=== PATIENT | male | born 1935 | race Caucasian/White ===

== ENCOUNTER 2018-12-30 10:02 | Emergency (ER) | payer OTHER ==
[2018-12-30] MEDS ORDERED: LET GEL TOPICAL 1 EA SYR TP ONE (10:16)
--- NOTE | 2018-12-30 10:25 | EDPHY ---
H & P Time Seen by Provider: 12/30/18 10:03 HPI/ROS: HPI Fall, right-sided pain. 83-year-old male by ambulance from the [facility]. The patient was in the bathroom approximately an hour and a half before arrival. He apparently was standing up cleaning himself with his pants down around his ankles, it is thought that he tried to move and then tripped falling forward landing on his right shoulder and right side. He is currently on hospice care. His son is in the room with him and describes this likely mechanism. The patient is not sure how he fell. He has a history of multiple falls and skin tears and contusions from bumping into things. He complains of right shoulder pain and right elbow pain. ROS: Constitutional: No fever, no chills. No weakness. Eyes: No discharge. No changes in vision. ENT: No sore throat. No nasal congestion or rhinorrhea. Respiratory: No cough. No shortness of breath. Cardiac: No chest pain, no palpitations. Gastrointestinal: No abdominal pain, no vomiting, no diarrhea. Genitourinary: No hematuria. No dysuria or increased frequency with urination. Musculoskeletal: No back pain. No neck pain. No myalgias or arthralgias. Skin: No rashes. Neurological: No headache. No focal weakness or altered sensation. Past medical history: Systolic and diastolic heart failure, dementia, cirrhosis of the liver, pulmonary hypertension, chronic respiratory failure, he is on 24-7 oxygen at 2-3 L, malignant neoplasm of bladder, GERD, atrial flutter/ atrial fibrillation. Is not on anticoagulation or antiplatelet agents. Social history: Hospice care. From [place]. Son and family are in room with him. Physical Exam: General Appearance: Alert, he does not appear to be in distress. This patient is responding to questions appropriately and in full sentences. Baseline mentation according to his son who is at the bedside. This patient appears generally well-hydrated and well-nourished. Head: Normocephalic atraumatic. Face: Facial bones are stable on palpation. Eyes: Pupils equal and round and reactive to light, no pallor or injection. No lid erythema or edema. ENT, Mouth: Mucous membranes moist. Dentition is intact. No malocclusion of the jaw. He has a right lateral tongue contusion about the size of a dime without a suturable laceration. Pharynx is clear. The bilateral nasal canals are clear. No septal hematoma. Respiratory: There are no retractions, lungs are clear to auscultation with good air movement bilaterally. Chest wall is stable to AP and lateral palpation. Cardiovascular: Regular rate and rhythm. No murmur. Gastrointestinal: Abdomen is soft, mildly distended with an umbilical hernia which is easily reduced, and nontender, no masses except noted, bowel sounds normal. Neurological: Motor sensory function is intact. Cranial nerves are normal. Cerebellar function intact. Skin: Warm and dry, no rashes. Skin tear abrasion right superior lateral shoulder, old skin tear over the right elbow from a previous fall, diffuse contusions involving the dorsal aspect of the proximal right hand and distal right wrist with some diffuse tenderness on palpation and axial loading of the digits of the right hand. Musculoskeletal: Neck is supple and nontender. The trachea is midline. No midline cervical, thoracic, lumbar or sacral tenderness on palpation. No flank tenderness on palpation. Extremities are symmetrical, full range of motion. All joints in the bilateral upper and bilateral lower extremities range without pain or impingement except noted. No tenderness on palpation of the long bones in the bilateral upper and bilateral lower extremities except noted. Psychiatric: No agitation. No depression. Database: EKG: EKG time is 1051 a.m.; EKG shows likely atrial fibrillation with intermittent PVCs in an underlying right bundle branch block, ventricular rate of 69. The QT intervals are within normal limits. There are no ST-T wave changes indicative of ischemic or injury pattern. No evidence of right heart strain. Interpreted by me. Imaging: CT head without contrast: Atrophy. Age-related changes. No acute pathology. Results discussed with staff radiologist Dr. Fredrick Capone Chest x-ray AP portable: Right-sided pleural effusion. This is not acute. No other acute cardiopulmonary disease process noted. Interpreted by me. Right shoulder x-ray series: Negative for acute fracture, subluxation, dislocation. Interpreted by me. Right elbow x-ray series: Negative for acute fracture, subluxation, dislocation. Interpreted by me. Right hand and wrist x-ray series: Negative for acute fracture, there is a increased widening involving the scaphoid and lunate which may represent a sprain or tear of the scapholunate ligament. Interpreted by me. Procedures: Emergency department course: Triage vital signs reviewed. Mildly hypotensive with blood pressure of 89/67. Patient is afebrile. 94% pulse oximetry on 2 L of nasal cannula oxygen which is his baseline. IV was placed. He will be given low volume IV fluids as needed based on his blood pressure, he declines pain medication at this time. He will be sent for imaging as above. I discussed patient's workup and presentation with his son Babatunde who is the power of trademark attorney and present at bedside. Patient also has a DNI and DNR with him. 12:50 p.m., the patient was re-evaluated, no change in mental status, alert, not in any distress. I discussed the patient's emergency department workup and results of chest x-ray and other imaging in detail with his , son and daughter who are all at bedside. His daughter who is a nurse and son explained to me that the right pleural effusion is old. They asked if it required drainage emergently and I explained that at this time it did not. Nayeli of case management was in the room as well. Currently we are trying to work with his hospice care as well as [facility] to ensure that he has a high enough level of care that he will be safe returning to [place] with his which is what he and his family desire. We will get him up and road test him with his walker. 2:00 p.m., the patient was up and ambulatory at his baseline with his walker. Blood pressure 100/67. Vital signs have been stable. At this time both his son , and daughter who is a nurse here at the hospital feel comfortable with him going back to [place]. Our case management has discussed ongoing care with the [place] staff as well as his hospice. Both the patient, his as well as the son and daughter feel comfortable with this plan. The son and daughter will provide transport practice to [place]. Follow-up and return to emergency department precautions were discussed with everyone. All of their questions were answered. The patient was discharged in good condition with family. Differential Diagnosis: The differential diagnosis on this patient includes but is not limited to mechanical fall, right shoulder contusion, right shoulder skin tear, right elbow and wrist contusions. Traumatic brain injury, traumatic spinal injury, other significant traumatic injury the noted unlikely. This represents a partial list of diagnoses considered. These considerations are based on history , physical exam, past history, reassessment and diagnostic testing. Constitutional: Initial Vital Signs Temperature (C) 36.3 C 12/30/18 10:12 Heart Rate 71 12/30/18 10:12 Respiratory Rate 17 12/30/18 10:12 Blood Pressure 89/67 L 12/30/18 10:12 O2 Sat (%) 94 12/30/18 10:12 O2 Delivery Mode Nasal Cannula O2 (L/minute) 4 Allergies/Adverse Reactions: pseudoephedrine Allergy (Verified 12/30/18 10:21) Home Medications: Medication Instructions Recorded ACETAMINOPHEN 12/30/18 Alendronate Sodium 12/30/18 Aspirin 12/30/18 Ativan 12/30/18 CALCIUM 600 + VIT D TABLET 12/30/18 Coenzyme Q10 12/30/18 Famotidine 12/30/18 Lactulose 12/30/18 Lasix 12/30/18 Levothyroxine Sodium 12/30/18 Potassium Chloride 12/30/18 Simvastatin 12/30/18 Spironolactone 12/30/18 Vitamin D3 12/30/18 Medical Decision Making - Data Points Laboratory Results: Laboratory Results 12/30/18 10:27 12/30/18 10:27 Medications Given: Discontinued Medications Tetracaine/Epinephrine/Lidocaine (Let Gel Topical) 1 ea TP EDNOW ONE Stop: 12/30/18 10:17 Last Admin: 12/30/18 10:54 Dose: 1 ea Departure - Departure Disposition: Home, Routine, Self-Care Clinical Impression: Fall from ground level, Abrasion of right shoulder, Sprain of right hand, Chronic right pleural effusion Condition: Good Instructions: Fall Prevention for Older Adults (ED), Hand Sprain (ED) Additional Instructions: Read and follow provided instructions. Follow-up with your primary care physician in 2-3 days for re-evaluation. Return to the emergency department for worsening pain, cough, difficulty breathing or other serious concerns. Referrals: [facility] [Other] - As per Instructions
[2018-12-30 10:38] LABS: PLATELET COUNT 356 10^3/uL (150-400)
[2018-12-30 10:50] LABS: INR 1.18 (0.83-1.16); PROTIME(PATIENT) 14.5 SEC (12.0-15.0)
[2018-12-30 10:56] LABS: CREATINE KINASE 78 IU/L (0-224)
[2018-12-30 13:36] VITALS: BP 100/67
--- NOTE | 2018-12-30 15:26 | CPEKG ---
Test Reason : OPEN Blood Pressure : / mmHG Vent. Rate : 069 BPM Atrial Rate : 000 BPM P-R Int : 192 ms QRS Dur : 172 ms QT Int : 461 ms P-R-T Axes : 000 051 063 degrees QTc Int : 494 ms Atrial fibrillation Ventricular premature complex Right bundle branch block Confirmed by Nga Persaud ([id number]) on 12/30/2018 3:25:36 PM Referred By: Nga Persaud Confirmed By:Nga Persaud
--- NOTE | 2018-12-30 15:52 | ASMTCMCOM ---
CM Note CM Note Notes: Patient presents to ER from [facility] and is followed by [facility]. This CM met with patient's son Babatunde and RANCHO Gregorio who are supportive at bedside. Patient has recently started hospice services with [facility] and patient is living with his at [place] in an [place] apartment. Due to patient safety concerns with falling, etc., family is interested in expiditing a care conference with [facility] and [facility] to discuss available resources/options for increased care needs. This CM spoke with Devin from [facility] to coordinate converstaion with family prior to patient's discharge from the ER back to [place]. Family is comfortable with transporting patient back to [place] and have made arrangements with Devin for follow up there. CM available for further needs prn Date Signed: 12/30/2018 03:51 PM Electronically Signed By:Nayeli Sheppard RN
== END 2018-12-30 14:33 | disposition home or self-care (01) ==
LOC: EDUNIT#
DX: S63.91XA Sprain of unspecified part of right wrist and hand, initial encounter (principal); S40.211A Abrasion of right shoulder, initial encounter; S00.532A Contusion of oral cavity, initial encounter; J96.10 Chronic respiratory failure, unspecified whether with hypoxia or hypercapnia; I50.40 Unspecified combined systolic (congestive) and diastolic (congestive) heart failure; I27.20 Pulmonary hypertension, unspecified; J90 Pleural effusion, not elsewhere classified; W01.0XXA Fall on same level from slipping, tripping and stumbling without subsequent striking against object, initial encounter; Y92.121 Bathroom in nursing home as the place of occurrence of the external cause; Z99.81 Dependence on supplemental oxygen